=== PATIENT | male | born 1980 | race Caucasian/White ===

== ENCOUNTER 2017-06-27 21:00 | Emergency (ER) | payer SELFPAY ==
[2017-06-27 21:20] VITALS: BP 127/68; BMI 22.3
[2017-06-27 22:16] LABS: BILIRUBIN,URINE NEGATIVE (NEGATIVE); BLOOD/HEMOGLOBIN,URINE 1+ (NEGATIVE); GLUCOSE, URINE NEGATIVE (NEGATIVE); KETONES,URINE NEGATIVE (NEGATIVE); LEUKOCYTE ESTERASE ,URINE 1+ (NEGATIVE); NITRITES,URINE NEGATIVE (NEGATIVE); PH,URINE 6.5 (5.0 - 8.0); PROTEIN,URINE NEGATIVE (NEGATIVE); UROBILINOGEN,URINE 1+ (NORMAL)
--- NOTE | 2017-06-27 22:18 | DR.GENAD ---
HPI - PCP Primary Care Physician: Joseph JOHNSON - HPI Comment HPI Comment: PAIN WORSE CURRENTLY. SCOTUM IS SWOLLEN AND TESTICLE IS PAINFUL ON RIGHT SIDE. TOOK TYLENOL FOR PAIN BUT NOT HELPING. NO FEVER OR DYSURIA. - Complaint/Symptoms Chief Complaint Doctors Comments: RIGHT LOWER ABDOMEN PAIN GOING INTO RIGHT SCROTUM TIMES ONE DAY. Chief Complaint:: SWELLING PAIN IN RIGHT GROIN RADIATING INTO TESTICLE STARTED YESTERDAY AROUND 1730 Self Treatment fo Chief Complaint: TYLENOL LAST TAKEN AT 1730 - Nurses notes reviewed Nurses Notes Review: Yes - Source History Provided: Patient - Mode of Arrival Mode of Arrival: Ambulatory - Timing Onset of Chief Complaint: 06/26/17 Came on: Suddenly - Duration Duration: Constant Duration: Days - Severity Severity: Moderate PMH - PMH Past Medical History: Yes Past Medical History: Dyslipidemia, Hypertension Past Surgical History: No Surgical History: No History - Family History History of Family Medical Conditions: Yes Family Medical History: Diabetes Mellitus, Cancer, [place], Coronary Artery Disease, Sudden Cardiac , Hypertension Family Medical History Comment: CVA - Social History Does patient currently use any type of tobacco product: Yes Have you used tobacco products in the last 12 months: Yes Type of Tobacco Use: Cigarettes How many years tobacco product used: 20 Does any household member use tobacco: Yes Alcohol Use: None Do you use any recreational Drugs:: No Lives With: Spouse Lives Where: Home - infectious screening In the last 2 months have you had wt loss of >10#?: NO Have you had fever, night sweats or hemotysis?: No Have you traveled outside the country in the last 6 months?: No Isolation: Standard ROS - Review of Systems Constitutional: No Symptoms Reported Eyes: No Symptoms Reported ENTM: No Symptoms Reported Respiratoy: No Symptoms Reported Cardiovascular: No Symptoms Reported Gastrointestinal/Abdominal: Abdominal Pain, Other (RT LOWER ABDOMEN PAIN AND SWELLING.) Genitourinary: No Symptoms Reported (SWELLING AND TENDERNESS.), Other. negative : Dysuria, Frequency, Hematuria Neurological: No Symptoms Reported Musculoskeletal: No Symptoms Reported Integumentary: No Symptoms Reported Hematologic/Lymphatic: No Symptoms Reported Endocrine: No Symptoms Reported All Other Systems: Reviewed and Negative PE - Vital Signs Vitals: Temperature 98.0 F Pulse Rate 86 Respiratory Rate 20 Blood Pressure 127/68 O2 Sat by Pulse Oximetry 97 - General Limitations: No Limitations General Appearance: Alert - Head Head Exam: Normal Inspection - Eyes Eye exam: Normal Appearance - ENT ENT Exam: Normal External Ear Exam External Ear Exam: Normal External Inspection TM/Canal Exam: Bilateral Normal Nose Exam: Normal Nose Exam Mouth Exam: Normal Inspection Throat Exam: Normal Inspection - Neck Neck Exam: Normal Inspection - Chest Chest Inspection: Symmetric Chest Wall Rise - Respiratory Respiratory Exam: Normal Lung Sounds Bilat Respiratory Exam: Bilateral Clear to Auscultation - Cardiovascular Cardiovascular Exam: Regular Rate, Normal Rhythm, Normal Heart Sounds - Abdominal Exam Abdominal Exam: Normal Bowel Sounds, Soft, Tenderness Abdominal Tenderness: RLQ, Other (RIGHT TESTICLE TENDER. SCOTUM SWOLLEN AND TENDER.) - Extremities Extremities Exam: Normal Inspection - Back Back Exam: Normal Inspection - Neurologic Neurological Exam: Alert, Oriented X3 - Psychiatric Psychiatric Exam: Anxious - Skin Skin Exam: Normal Color MDM - Additional Information Additional Information Obtained From: Family - Differential Diagnosis Differential Diagnosis: APPENDICITIS, INCARCERATED RT INGUINAL HERNIA, TESTICULAR TORSION, ORCHITIS Course - Treatment Treatment: SEE ORDERS. PAIN MEDS IN ED. - Education/Counseling Education/Counseling: Patient, Education Educated On: Diagnosis, Needs for Follow Up ROR - Labs Reviewed Laboratory Results Reviewed?: Yes Result Diagrams: 06/27/17 22:46 06/27/17 22:46 Laboratory: WBC 10.2 X10^3/uL (3.6-10.0) H 06/27/17 22:46 RBC 4.28 X10^6/uL (4.7-6.0) L 06/27/17 22:46 Hgb 13.2 g/dL (13.5-18.0) L 06/27/17 22:46 Hct 37.9 % (42.0-54.0) L 06/27/17 22:46 MCV 88.6 fL (80.0-100.0) 06/27/17 22:46 MCH 30.9 pg (27.0-34.0) 06/27/17 22:46 MCHC 34.9 g/dL (33.0-35.0) 06/27/17 22:46 RDW 12.9 % (11.6-16.5) 06/27/17 22:46 Plt Count 177 X10^3/uL (150.0-450.0) 06/27/17 22:46 MPV 9.5 fL (7.4-11.0) 06/27/17 22:46 Neut % 55.9 % (42.0-75.0) 06/27/17 22:46 Lymph % 31.4 % (21.0-51.0) 06/27/17 22:46 Bates % 7.1 % (0.0-13.0) 06/27/17 22:46 Eos % 4.7 % (0.9-2.9) H 06/27/17 22:46 Baso % 0.9 % (0.2-1.0) 06/27/17 22:46 Neut # 5.7 x10^3/uL (2.2-4.8) H 06/27/17 22:46 Lymph # 3.2 X10^3/uL (1.3-2.9) H 06/27/17 22:46 Bates # 0.7 x10^3/uL (0.3-0.8) 06/27/17 22:46 Eos # 0.5 x10^3/uL (0.0-0.2) H 06/27/17 22:46 Baso # 0.1 X10^3/uL (0.0-0.1) 06/27/17 22:46 Absolute Nucleated RBC 0.0 /100WBC 06/27/17 22:46 Sodium 137 mmol/L (136-145) 06/27/17 22:46 Corrected Sodium TNP 06/27/17 22:46 Potassium 3.7 mmol/L (3.5-5.1) 06/27/17 22:46 Chloride 103 mmol/L (98-107) 06/27/17 22:46 Carbon Dioxide 27.0 mmol/L (21-32) 06/27/17 22:46 BUN 21 mg/dL (7-18) H 06/27/17 22:46 Creatinine 1.11 mg/dL (0.70-1.30) 06/27/17 22:46 Est GFR (MDRD) Af Amer > 60 (>60) 06/27/17 22:46 Est GFR (MDRD) Non-Af > 60 (>60) 06/27/17 22:46 Glucose 99 mg/dL (65-99) 06/27/17 22:46 Calcium 8.5 mg/dL (8.5-10.1) 06/27/17 22:46 Corrected Calcium TNP 06/27/17 22:46 Total Bilirubin 0.30 mg/dL (0.2-1.0) 06/27/17 22:46 AST 23 Units/L (15-37) 06/27/17 22:46 ALT 22 Units/L (12-78) 06/27/17 22:46 Alkaline Phosphatase 70 Units/L (46-116) 06/27/17 22:46 Total Protein 6.9 g/dL (6.4-8.2) 06/27/17 22:46 Albumin 3.7 g/dL (3.4-5.0) 06/27/17 22:46 Globulin 3.2 g/dL (2.5-4.5) 06/27/17 22:46 Albumin/Globulin Ratio 1.2 Ratio (1.1-2.1) 06/27/17 22:46 Specimen Type Clean catch urine 06/27/17 22:07 Urine Color Yellow (YELLOW) 06/27/17 22:07 Urine Appearance Clear (CLEAR) 06/27/17 22:07 Urine pH 6.5 (5.0 - 8.0) 06/27/17 22:07 Ur Specific Coleman 1.015 (1.000-1.030) 06/27/17 22:07 Urine Protein Negative (NEGATIVE) 06/27/17 22:07 Urine Glucose (UA) Negative (NEGATIVE) 06/27/17 22:07 Urine Ketones Negative (NEGATIVE) 06/27/17 22:07 Urine Occult Blood 1+ (NEGATIVE) 06/27/17 22:07 Urine Nitrite Negative (NEGATIVE) 06/27/17 22:07 Urine Bilirubin Negative (NEGATIVE) 06/27/17 22:07 Urine Urobilinogen 1+ (NORMAL) 06/27/17 22:07 Ur Leukocyte Esterase 1+ (NEGATIVE) 06/27/17 22:07 Urine RBC 0-3 /HPF (NEGATIVE) 06/27/17 22:07 Urine WBC 0-3 /HPF (NEGATIVE) 06/27/17 22:07 Ur Squamous Epith Cells Rare /HPF (NEGATIVE) 06/27/17 22:07 Urine Bacteria Negative /HPF (NEGATIVE) 06/27/17 22:07 Ur Culture Indicated? No/not indicated 06/27/17 22:07 - XRAY XRAY Interpreted by: Radiologist XRAY Findings: REPORTS DISCUSS WITH PATIENT AND HIS . - Diagnosis Discharge Problem: Right groin pain, Hydrocele in adult Abdominal pain Qualifiers: Abdominal location: right lower quadrant Qualified Code(s): R10.31 - Right lower quadrant pain - Discharge Plan Disposition: 01 HOME, SELF-CARE Condition: Stable Prescriptions: Ciprofloxacin HCl [Cipro] 500 mg PO Q12H #20 tab Ibuprofen [MOTRIN TAB 600 MG *] 600 mg PO TID PRN #20 tab PRN Reason: Pain/Inflammation Tramadol HCl 50 mg PO Q6H #15 tablet - Follow ups/Referrals Follow ups/Referrals: KATHIA JOHNSON [Primary Care Provider] - 3 days - Instructions Instructions: Hydrocele, Adult, Abdominal Pain, Adult, [id number] Additional Instructions: RETURN TO ED IF WORSE.
[2017-06-27 22:23] LABS: APPEARANCE,URINE CLEAR (CLEAR); BACTERIA,URINE NEGATIVE /HPF (NEGATIVE); COLOR,URINE YELLOW (YELLOW); RBC,URINE 0-3 /HPF (NEGATIVE); SQUAMOUS EPITHELIAL CELL,UR RARE /HPF (NEGATIVE)
[2017-06-27] MEDS ORDERED: MORPHINE SULFATE INJ 4 MG IVP ONE (22:39)
[2017-06-27] MEDS ORDERED: ZOFRAN INJ 4 MG VIAL IVP ONE (22:39)
--- NOTE | 2017-06-27 22:45 | US ---
HISTORY: Swelling and pain of right groin radiating in the testicle. Study: Testicular ultrasound. Comparison: None. Technique: Multiple sommers scale and Doppler images of the right and left testicles were obtained Findings: The testicles demonstrate normal echotexture. No intra parenchymal mass or infiltrative process can b e identified. There is symmetrical and normal vascular flow in both testicles on Doppler interrogati on. The right testicle measures 4.0 x 1.9 x 3.5 cm. The left testicle measures 4.4 x 2.3 x 3.6 cm. T he epididymides are unremarkable without mass or cystic lesion. There is a small moderate size hydroc edda on the right. Normal-appearing lymph node is demonstrated within the right inguinal region. IMPRESSION: Small to moderate-sized hydrocele on the right. There is no evidence of testicular tors ion. Intermittent torsion is not excluded. Reported By:
[2017-06-27] MEDS ORDERED: ZOFRAN INJ 4 MG VIAL ONE (22:46)
[2017-06-27] MEDS ORDERED: NS 1000 ML 1,000 ML ONE (22:46)
[2017-06-27] MEDS ORDERED: MORPHINE SULFATE INJ 4 MG ONE (22:47)
[2017-06-27 22:53] LABS: BASOPHILS # (AUTO) 0.1 X10^3/uL (0.0-0.1); BASOPHILS % (AUTO) 0.9 % (0.2-1.0); EOSINOPHILS # (AUTO) 0.5 x10^3/uL (0.0-0.2); EOSINOPHILS % (AUTO) 4.7 % (0.9-2.9); HEMATOCRIT 37.9 % (42.0-54.0); HEMOGLOBIN 13.2 g/dL (13.5-18.0); LYMPHOCYTES # (AUTO) 3.2 X10^3/uL (1.3-2.9); LYMPHOCYTES % (AUTO) 31.4 % (21.0-51.0); MEAN CORPUSCULAR HEMOGLOBIN 30.9 pg (27.0-34.0); MEAN CORPUSCULAR HGB CONC 34.9 g/dL (33.0-35.0); MEAN CORPUSCULAR VOLUME 88.6 fL (80.0-100.0); MEAN PLATELET VOLUME 9.5 fL (7.4-11.0); MONOCYTES # (AUTO) 0.7 x10^3/uL (0.3-0.8); MONOCYTES % (AUTO) 7.1 % (0.0-13.0); NEUTROPHILS # (AUTO) 5.7 x10^3/uL (2.2-4.8); NEUTROPHILS % (AUTO) 55.9 % (42.0-75.0); PLATELET COUNT 177 X10^3/uL (150.0-450.0); RED BLOOD COUNT 4.28 X10^6/uL (4.7-6.0); RED CELL DISTRIBUTION WIDTH 12.9 % (11.6-16.5); WHITE BLOOD COUNT 10.2 X10^3/uL (3.6-10.0)
[2017-06-27] MEDS ORDERED: NS 1000 ML 1,000 ML IV SCH (23:00)
[2017-06-27 23:06] LABS: ALANINE AMINOTRANSFERASE 22 Units/L (12-78); ALBUMIN 3.7 g/dL (3.4-5.0); ALKALINE PHOSPHATASE 70 Units/L (46-116); ASPARTATE AMINO TRANSFERASE 23 Units/L (15-37); BLOOD UREA NITROGEN 21 mg/dL (7-18); CALCIUM 8.5 mg/dL (8.5-10.1); CHLORIDE 103 mmol/L (98-107); CREATININE 1.11 mg/dL (0.70-1.30); SODIUM 137 mmol/L (136-145); TOTAL PROTEIN 6.9 g/dL (6.4-8.2); eGFR BLACK RACES > 60 (>60); eGFR NON BLACK RACES > 60 (>60)
--- NOTE | 2017-06-28 01:07 | CT ---
CT abdomen and pelvis without contrast Indication: Right groin pain Comparison: None available Technique: Multiple axial images of the abdomen and pelvis were obtained from the lung bases to the pubic symphy sis without the administration of IV contrast. Findings: The visualized portions of the lung bases are unremarkable. The bony structures are grossly intact. Given the limitations of lack of IV contrast administration the liver, gallbladder, spleen, pancreas, and adrenal glands are unremarkable in their CT appearance. Punctate nonobstructing stone is noted within the lower pole the left kidney seen on axial image 30. Right kidney demonstrates no nephrolithiasis or hydronephrosis. No bowel wall thickening or bowel dilatation is present. The colon and rectum are unremarkable. The urinary bladder is grossly unremarkable. Prostate gland is normal. The appendix is normal. No mesenteric lymphadenopathy or stranding can be observed. No free fluid or free air is seen within the abdomen. IMPRESSION: 1. No acute inflammatory process within the abdomen or pelvis. 2. Punctate nonobstructing stone within the lower pole left kidney. Reported By:
== END 2017-06-28 02:13 | disposition home or self-care (01) ==
LOC: ER 21:00
DX: N43.3 Hydrocele, unspecified (principal); R10.31 Right lower quadrant pain
CPT/HCPCS: 36415; 74176; 76870; 80053; 81001; 85025; 96365; 96367; 96374; 96375; 99283; A4222; J2270; J2405

== ENCOUNTER 2017-09-26 20:07 | Emergency (ER) | payer SELFPAY ==
[2017-09-26 20:13] VITALS: BP 116/79; BMI 22.3
--- NOTE | 2017-09-27 13:35 | DR.EXTPAIN ---
HPI - PCP Primary Care Physician: KATHIA JOHNSON - Complaint/Symptoms Chief Complaint:: RIGHT SHOULDER PAIN SINCE LAST WEDNESDAY. HURT ON JOB-MOVING CATTLE. FALL, INSTANT PAIN. LAST FEW DAYS PAIN WORSE. LIMITED ROM, HAS TO HELP ME BATHE, DRESS. CAN'T SEE DOCTOR TILL NEXT WEEK. Self Treatment fo Chief Complaint: NAPROSEN - Source History Provided: Patient - Mode of arrival Mode of Arrival: Ambulatory - Timing Onset of Chief Complaint: 09/20/17 PMH - PMH Past Medical History: Yes Past Medical History: Dyslipidemia, Hypertension Past Surgical History: Yes Surgical History: No History - Family History History of Family Medical Conditions: Yes Family Medical History: Diabetes Mellitus, Cancer, [place], Coronary Artery Disease, Sudden Cardiac , Hypertension - Social History Type of Tobacco Use: Cigarettes Alcohol Use: None Do you use any recreational Drugs:: No Lives With: Spouse Lives Where: Home - infectious screening Have you traveled outside the country in the last 6 months?: No Isolation: Standard PE - Vital Signs Vitals: Temperature 97.7 F Pulse Rate 91 Respiratory Rate 18 Blood Pressure 116/79 O2 Sat by Pulse Oximetry 98 - Discharge Plan Disposition: LWBS After Triage Condition: Stable - Follow ups/Referrals Follow ups/Referrals: KATHIA JOHNSON [Primary Care Provider] - 3 days - Instructions
== END 2017-09-27 00:02 | disposition left against medical advice (07) ==
LOC: ER 20:07
DX: M25.511 Pain in right shoulder (principal)
CPT/HCPCS: 99281